=== PATIENT | male | born 1995 | race Caucasian/White ===

== ENCOUNTER 2018-02-16 23:34 | Emergency (ER) | payer OTHER ==
--- NOTE | 2018-02-16 23:40 | EDPHY ---
H & P Stated Complaint: Chest pain Time Seen by Provider: 02/16/18 23:37 HPI/ROS: CHIEF COMPLAINT: Right parasternal chest pain HISTORY OF PRESENT ILLNESS: Previously healthy 22-year-old male who felt well the entire day. Earlier he had occasions to eat today without any difficulty. Further prior to the incident as described below he did not have any antecedent chest pain shortness of breath, pleuritic pain, cough, or phlegm, or fevers or chills. This evening, approximately 11:00 p.m. He prepared a dish of sticky rice with chunks of pineapple as well as a little coconut milk. He of fresh prepared himself. He took a few mouthfuls without incident. He himself describes himself as a fast eater though he did not eat any more fast that he usually does. There and is when he started having a sense that he could no longer swallow, as if this food was stuck, and he had right parasternal pain. Of note there is no antecedent retching at that point in time or coughing. Within seconds, he decided to take some doctor pepper to help palate down. He took a golf or 2 and it simply came right back up. He did not make it to the bathroom but instead to the kitchen sink. He retched for or 3 times and noted food substances. Thereafter he tried to self induce some vomiting without any success in terms of relief. Since that time he has had a persistent sense that is if something is stuck in his chest and he is being right parasternal chest. Of note, despite the efforts with the soda as well as the retching he did not feel the pain in the chest to intensified. Further, he did not have a sense that he was unable to speak and did not have the sense that it went down his wind pipe. He has never been studied before. He does not take Pepcid her antacids and he himself states he is not have"reflux". Further, he does report having episodes similar to this but not lasting as long whereas the sense that food is blocked. That may happen 1 to 2 times a year max. P: Nonpleuritic pain to the right parasternal chest after eating Q: Sharp R: No radiation, no expansion S: Moderately severe T: Onset 1 hr ago REVIEW OF SYSTEMS: Constitutional: No fever, no chills. Eyes: No discharge ENT: No sore throat. Cardiovascular: No chest pain, no palpitations. Respiratory: No cough, shortness of breath, or wheezing. Gastrointestinal: No nausea vomiting or diarrhea. No abdominal pain. Genitourinary: No hematuria or frequency. Musculoskeletal: No back pain. Skin: No rashes. Neurological: No headache. A 10 system review of systems was performed and is negative except for the noted findings in the HPI. Source: Patient Exam Limitations: No limitations - Personal History Tetanus Vaccine Date: 4 years - Medical/Surgical History Hx Asthma: No Hx Chronic Respiratory Disease: No Hx Diabetes: No Hx Cardiac Disease: No Hx Renal Disease: No Hx Cirrhosis: No Hx Alcoholism: No Hx HIV/AIDS: No Hx Splenectomy or Spleen Trauma: No Other PMH: ADD - Social History Smoking Status: Never smoked Alcohol Use: Occasionally Drug Use: None - Physical Exam Exam: General Appearance: Alert, no distress. Afebrile. Normal phonation. No respiratory distress. Eyes: Pupils equal and round no pallor or injection. No icterus ENT, Mouth: Mucous membranes slightly dry Pharynx without erythema or exudate. TM Clear. Neck: No adenopathy. Supple. No JVD. Trachea in midline. Respiratory: There are no retractions, lungs are clear to auscultation. No rub. Chest wall: Nontender to palpation. No crepitus. No subcutaneous emphysema. Cardiovascular: Regular rate and rhythm, without murmur. Abdomen: Soft and nontender, no masses, bowel sounds normal. Neurological: Ox3. No motor weakness. Sensation intact. Gait nl. Skin: Warm and dry, no rashes. Musculoskeletal: No joint swelling. Extremities: No edema. Homans sign negative. No cords. Psychiatric: Normal affect. Patient is oriented X 3. There is no agitation Constitutional: Initial Vital Signs Temperature (C) 37 C 02/16/18 23:46 Heart Rate 86 02/16/18 23:46 Respiratory Rate 16 02/16/18 23:46 Blood Pressure 124/89 H 02/16/18 23:46 O2 Sat (%) 96 02/16/18 23:46 O2 Delivery Mode Room Air Allergies/Adverse Reactions: No Known Allergies Allergy (Unverified 02/16/18 23:45) Home Medications: Medication Instructions Recorded Lisdexamfetamine Dimesylate 02/16/18 [VYVANSE] buPROPion SR [Wellbutrin 100mg SR 02/16/18 (*)] chlordiazePOXIDE [Librium 25 mg 02/16/18 (*)] Medical Decision Making - Diagnostics EKG Interpretation: EKG: Interpreted by me contemporaneously. Rhythm: Normal sinus rhythm. Heart rate 82 QTc 428 QRS: normal STT segment: normal T Waves: Normal Q waves none Summary: Normal Ekg Imaging Results: Chest x-ray: Three view chest. Interpreted by [me, contemporaneously]. Films [viewed] by me on the PACS system. Normal mediastinum. Normal lung cordoba. No effusions. Normal chest. No parasternal air. No pneumomediastinum. No pneumothorax seen on expiration view. Imaging: I viewed and interpreted images myself ED Course/Re-evaluation: When interviewed he was able to speak clearly and in full sentences. No signs of shortness of breath. The chest wall is nontender to palpation. EKG normal. No ischemia After the chest films which were negative as read by me, he was given an oz of water to drink over the ensuing 20 min: He noted reduced pain No pain with swallowing No difficulty swallowing. Able to drink 3 oz, slowly as advised. D/w pt need for GI followup. Differential Diagnosis: Differential diagnosis includes, but is not limited to: Esophageal rupture, esophageal spasm, esophageal foreign body-food, Gastroenteritis, pancreatitis, renal colic, cholecystitis, gastritis. Departure - Departure Disposition: Home, Routine, Self-Care Clinical Impression: Esophageal spasm Esophageal foreign body Qualifiers: Encounter type: initial encounter Qualified Code(s): T18.108A - Unspecified foreign body in esophagus causing other injury, initial encounter Chest pain Qualifiers: Chest pain type: unspecified Qualified Code(s): R07.9 - Chest pain, unspecified Condition: Good Instructions: Esophageal Foreign Body (ED), Dysphagia (ED) Additional Instructions: Nothing to eat until am. At that time, advance your diet over the next 24 hours. Return if your unable to do so. Call GI specialist for followup. Referrals: Telly Casas MD [Medical Doctor] - As per Instructions Patient,NotPresent [Unknown] - 5-7 days, call for appt.
[2018-02-17 00:59] VITALS: BP 125/60
--- NOTE | 2018-02-17 01:07 | CPEKG ---
Test Reason : OPEN Blood Pressure : / mmHG Vent. Rate : 082 BPM Atrial Rate : 082 BPM P-R Int : 193 ms QRS Dur : 088 ms QT Int : 366 ms P-R-T Axes : 049 054 053 degrees QTc Int : 428 ms Sinus rhythm Confirmed by Pieter Holloway ([id number]) on 02/17/2018 1:06:38 AM Referred By: Confirmed By:Pieter Holloway
== END 2018-02-17 00:59 | disposition home or self-care (01) ==
LOC: CED 23:34
DX: K22.4 Dyskinesia of esophagus (principal); R07.9 Chest pain, unspecified
CPT/HCPCS: 71046-PO